=== PATIENT | male | born 1960 | race Caucasian/White ===

== ENCOUNTER → 2017-01-29 | Outpatient (CLI) | payer BC ==
--- NOTE | 2017-01-29 08:38 | CT ---
EXAM DESCRIPTION: Abdoment/Pelvis w/o Contrast CLINICAL HISTORY: 56 years, 56 years, Male, Male, ASYMPTOMATIC MICROSCOPIC HEMATURIA COMPARISON: None. TECHNIQUE: CT of the abdomen and pelvis is performed according to our non contrast protocol This exam was performed according to our departmental dose-optimization program, which includes automated exposure control, adjustment of the mA and/or kV according to patient size and/or use of iterative reconstruction technique. FINDINGS: A small calcified granuloma in the left lung base and tiny calcified granuloma in the right lung base is noted. The liver, biliary system, pancreas, and spleen are normal on noncontrast imaging. The right kidney is atrophic with cortical thinning without hydronephrosis. A tiny nonobstructing 1 mm calculus in the upper pole is suggested. On the left the kidney is normal in size and appearance without hydronephrosis with a bilobed approximate 0.5 x 1.5 cm stone in the lower pole calyceal system. No definite cystic or solid mass. Although there is no hydronephrosis present or hydroureter in the distal right ureter just proximal to the UVJ is an oval approximate seven or 8 mm calculus without significant proximal hydronephrosis or hydroureter. The adrenal glands and retroperitoneum are normal without mass or adenopathy. The IVC is normal and the aorta has a normal size and contour. The stomach, small and large bowel, peritoneal cavity, mesentery, and abdominal wall are normal. A fat-containing umbilical hernia is noted. The bladder has no focal mass or stone evident. The pelvis demonstrates no fluid collection or abnormal mass. Age appropriate degenerative changes in the spine and pelvis are noted. Marked posterior hypertrophic spurring at the L2-3 disc level significantly narrows the thecal sac anteriorly with significant stenosis suspected at this level. IMPRESSION: 1. Bilateral renal stone disease with moderately atrophic right kidney with tiny 1 mm nonobstructing upper pole calculus and moderately large seven or 8 mm distal right ureteral calculus but without significant proximal obstruction. A bilobed 0.5 x 1.5 cm calculus of the lower pole collecting system on the left without obstruction is noted 2. Marked posterior spurring at the L2-3 disc level with significant AP diameter canal stenosis. 3. Fat-containing umbilical hernia. Electronically signed by: Christiano Green MD 01/29/2017 8:38 AM CDT
== END ==
LOC: CT 07:47
PROVIDERS: ATTEND Family Medicine
DX: R31.21 Asymptomatic microscopic hematuria (principal); N20.0 Calculus of kidney; K42.9 Umbilical hernia without obstruction or gangrene

== ENCOUNTER 2017-03-15 15:59 | Emergency (ER) | payer BC ==
--- NOTE | 2017-03-15 16:27 | ED.PDOC ---
History of Present Illness - General Chief Complaint: General Stated Complaint: abnormal labs from clinic today Time Seen by Provider: 03/15/17 16:26 Source: patient Exam Limitations: no limitations - History of Present Illness Initial Comments: Perez Gardiner 56 y/o male stated that he had on and off dull to sharp abdominal pains for the last 2 weeks not getting relief.He decided to see his primary md today and had abnormal lab results advised to come to er.Labs that was done at the [facility] hospita lab as an outpatient K-6.6 [id number] Cr-4.35.He has DM2 and HTN. Timing/Duration: 1-3 hours Severity: moderate Improving Factors: nothing Worsening Factors: nothing Associated Symptoms: other - abdominal pains Allergies/Adverse Reactions: Allergies NO KNOWN ALLERGY Allergy (Verified 03/15/17 16:26) Home Medications: Ambulatory Orders Glipizide 10 mg PO BID 03/15/17 Metformin HCl 1,000 mg PO BID 03/15/17 Review of Systems - Review of Systems Constitutional: States: no symptoms reported EENTM: States: no symptoms reported Respiratory: States: no symptoms reported Cardiology: States: no symptoms reported Gastrointestinal/Abdominal: States: see HPI, abdominal pain Genitourinary: States: no symptoms reported Musculoskeletal: States: no symptoms reported Skin: States: no symptoms reported Neurological: States: no symptoms reported Endocrine: States: no symptoms reported Hematologic/Lymphatic: States: no symptoms reported Past Medical History (General) - Patient Medical History Hx Hypertension: Yes Hx Diabetes: Yes Surgical History: other - left knee - Vaccination History Hx Tetanus, Diphtheria Vaccination: No - Social History Hx Tobacco Use: No Hx Alcohol Use: No - Activities of Daily Living Patient Lives Alone: No - family Family Medical History - Family History Father Family History: Unknown - adopted Physical Exam - Physical Exam General Appearance: Alert, Comfortable, No apparent distress Eye Exam: bilateral normal Ears, Nose, Throat: hearing grossly normal, normal ENT inspection, normal pharynx Neck: non-tender, full range of motion, supple Respiratory: chest non-tender, lungs clear, normal breath sounds Cardiovascular/Chest: normal peripheral pulses, regular rate, rhythm, no edema, no murmur Peripheral Pulses: radial,right: 1+, radial,left: 1+ Gastrointestinal/Abdominal: normal bowel sounds, non tender, soft Back Exam: normal inspection, no CVA tenderness, no vertebral tenderness Extremity: normal range of motion, non-tender, normal inspection, no pedal edema , no calf tenderness Neurologic: alert, oriented x 3 Skin Exam: normal color, warm/dry Lymphatic: no adenopathy Progress - Progress Progress: 03/15/17 18:11 Vital Signs - 8 hr 03/15/17 03/15/17 03/15/17 16:27 17:24 17:52 Temperature 98 F Pulse Rate [ 80 60 72 Left Radial] Respiratory 20 22 16 Rate Blood Pressure 178/73 146/85 [Left Arm] O2 Sat by Pulse 98 99 95 Oximetry 03/15/17 18:07 Temperature Pulse Rate [ 58 L Left Radial] Respiratory 16 Rate Blood Pressure 137/84 [Left Arm] O2 Sat by Pulse 98 Oximetry 03/15/17 17:18 Sodium Bicarbonate Vial [Sodium Bicarbonate] 2 meq Sodium Chloride 0.45% 1000ML [1/2 Ns 1000ML] 1,000 ml IVS .QD 03/15/17 17:24 Abdoment/Pelvis w/o Contrast [CT] Stat 03/15/17 17:30 EKG STAT Laboratory Results - last 24 hr 03/15/17 03/15/17 03/15/17 16:25 16:25 16:27 WBC 8.4 RBC 3.44 L Hgb 10.9 L Hct 32.9 L MCV 95.7 H MCH 31.7 H MCHC 33.2 RDW 13.0 Plt Count 199 MPV 9.6 Absolute Neuts (auto) 6.00 Absolute Lymphs (auto) 1.30 Absolute Monos (auto) 0.90 H Absolute Eos (auto) 0.20 Absolute Basos (auto) 0.10 Neutrophils % 71.3 Lymphocytes % 15.0 L Monocytes % 11.0 H Eosinophils % 1.8 Basophils % 0.9 Sodium 142 Potassium 5.5 H Chloride 111 Carbon Dioxide 23 Anion Gap 13.5 BUN 66 H Creatinine 4.20 H BUN/Creatinine Ratio 15.7 Random Glucose 317 H D Serum Osmolality 314.3 H Calcium 8.3 L Total Bilirubin 0.4 AST 27 ALT 22 Alkaline Phosphatase 46 Serum Total Protein 6.6 Albumin 3.5 Globulin 3.1 Albumin/Globulin Ratio 1.1 Urine Color Yellow Urine Appearance Clear Urine pH 5.5 Ur Specific [place] 1.010 Urine Protein Negative Urine Glucose (UA) 250 H Urine Ketones Negative Urine Blood Small H Urine Nitrite Negative Urine Bilirubin Negative Urine Urobilinogen 0.2 Ur Leukocyte Esterase Negative Urine RBC 0-1 Urine WBC 1-3 Ur Epithelial Cells 0 Urine Bacteria 0 - EKG/XRAY/CT CT Ordered: Yes - abd/p outpatient-bilateral ureteral stone;obstructing left ureteral stone Departure - Departure Clinical Impression: Hyperkalemia, diminished renal excretion Acute renal failure (ARF) Qualifiers: Acute renal failure type: with other specified pathological lesion Qualified Code(s): N17.8 - Other acute kidney failure Diabetes Qualifiers: Diabetes mellitus type: type 2 Diabetes mellitus complication status: without complication Qualified Code(s): E11.9 - Type 2 diabetes mellitus without complications Time of Disposition: 18:21 - D/W Dr. Cotton -Urologist/Dr. Galan-Nephro Disposition: Transfer to Hospital Condition: Fair Departure Forms: Patient Portal Self Enrollment Referrals: Jarett Alvarez MD [Primary Care Provider] - 1-2 Weeks Home Medications: Ambulatory Orders Glipizide 10 mg PO BID 03/15/17 Metformin HCl 1,000 mg PO BID 03/15/17
[2017-03-15 16:31] VITALS: TEMP 98
[2017-03-15] MEDS ORDERED: CALCIUM GLUCONATE INJ 1 GM/10 ML VIAL IV ONE (17:18)
[2017-03-15] MEDS ORDERED: SODIUM CHLORIDE 0.45% IVS PRN (17:18)
[2017-03-15] MEDS ORDERED: SODIUM BICARBONATE IVS PRN (17:18)
[2017-03-15] MEDS ORDERED: SODIUM BICARBONATE SYRINGE 50 MEQ/50 ML SYG IV ONE ×2 (17:29→17:32)
[2017-03-15] MEDS ORDERED: SODIUM CHLORIDE 0.45% 1000ML 1,000 ML IVS ONE (17:30)
[2017-03-15] MEDS ORDERED: INSULIN, REG.(HUMAN) 100 U/ML VIAL SUBCU ONE (17:46)
[2017-03-15] MEDS ORDERED: INSULIN, REG.(HUMAN) 100 U/ML VIAL IV ONE (18:04)
[2017-03-15 18:08] VITALS: BP 137/84; O2SAT 98
== END 2017-03-15 18:59 | disposition short-term general hospital (02) ==
LOC: ER 15:59
DX: E87.5 Hyperkalemia (principal); N17.8 Other acute kidney failure; N20.1 Calculus of ureter; E11.9 Type 2 diabetes mellitus without complications; I10 Essential (primary) hypertension
CPT/HCPCS: 36415; 80053; 81001; 85025; 93005; J7799

== ENCOUNTER → 2017-03-15 | Outpatient (CLI) | payer SELFPAY ==
--- NOTE | 2017-03-15 17:23 | CT ---
EXAM DESCRIPTION: Abdoment/Pelvis w/o Contrast CLINICAL HISTORY: 56 years, 56 years, Male, Male, LLQ PAIN COMPARISON: January 29, 2017 TECHNIQUE: CT of the abdomen and pelvis is performed according to our non contrast protocol This exam was performed according to our departmental dose-optimization program, which includes automated exposure control, adjustment of the mA and/or kV according to patient size and/or use of iterative reconstruction technique. FINDINGS: The lung bases are clear without infiltrate or effusion or mass. The upper abdomen demonstrates a normal appearance of the spleen and liver as well as gallbladder and pancreas and adrenal glands. Both kidneys are abnormal in appearance with a moderately atrophic right kidney that in retrospect is very little changed from previous. Significant caliectasis is not apparent but there is now mild pelviectasis and mild dilation of the proximal right ureter to the level of a previously described 8 mm distal ureteral calculus. Mild proximal obstruction is suspected and more prominent than previously seen. On the left there is moderate hydronephrosis with either an elongated or more likely multiple stacked stones in the proximal ureter lying at and just below the level of the lower pole of the left kidney. At least one small nonobstructing intrarenal calculus is evident in a lower pole calyx as well as a tiny calculus in a midpole calyx of the left kidney. I suspect there are at least three stones in the proximal left ureter with the largest approximately 8 mm in diameter and two smaller three or 4 mm calculi more proximally. The retroperitoneum is unremarkable. Small and large bowel caliber is normal. Very little if any diverticulosis and no evidence of diverticulitis is noted. An acute inflammatory process in the left lower quadrant is not apparent. Fat-containing umbilical hernia is noted with the anterior abdominal wall otherwise unremarkable area of moderate focal degenerative changes with posterior spurring into the spinal canal with likely significant central stenosis at L2-3 is noted. IMPRESSION: 1. Abnormal kidneys bilaterally with persistent 8 mm distal right ureteral calculus with no minimal pelviectasis and ureterectasis without caliectasis involving the atrophic right kidney. 2. Hydronephrosis and obstructing calculi in the proximal left ureter with moderate proximal caliectasis with I suspect a series of three stones obstructing the proximal left ureter at and just below the level of the lower pole. 3. No evidence of acute diverticulitis is seen. 4. Marked hypertrophic spurring posteriorly at the L2-3 disc level with significant spinal canal stenosis. Electronically signed by: Christiano Green MD 03/15/2017 11:53 AM CDT
== END ==
LOC: CT 10:28
PROVIDERS: ATTEND Nurse Practitioner Family
DX: R10.32 Left lower quadrant pain (principal); N13.2 Hydronephrosis with renal and ureteral calculous obstruction

== ENCOUNTER → 2017-05-05 | Outpatient (CLI) | payer BC ==
--- NOTE | 2017-05-05 16:57 | RAD ---
EXAM DESCRIPTION: KUB CLINICAL HISTORY: 56 years, Male, CALCULUS OF KIDNEY COMPARISON: CT scan March 15. FINDINGS: Nonspecific bowel gas pattern. There are two nonobstructing lower pole left kidney stones measuring about 3 mm. Slightly larger stone present on the CT scan earlier not clearly seen. The stones in the proximal left ureter also not clearly seen. No obvious stone over course of either ureter in the abdomen. In the pelvis there are several rounded calcifications bilaterally which are probably phleboliths. A oval density about 2 cm overlying the left ilium was not seen on the February study and may be an external artifact. IMPRESSION: 1. Previously noted proximal left ureteral stones no longer seen and have presumably been passed 2. No obvious ureteral stone on either side 3. Nonobstructing lower pole left kidney stones Electronically signed by: Miguel A Weiss MD 05/05/2017 4:56 PM CDT
== END ==
LOC: RAD 13:25
PROVIDERS: ATTEND Urology
DX: N20.0 Calculus of kidney (principal)

== ENCOUNTER → 2017-05-26 | Outpatient (CLI) | payer BC ==
--- NOTE | 2017-05-27 10:52 | RAD ---
EXAM DESCRIPTION: XR ABDOMEN 1 VIEW (KUB) CLINICAL HISTORY: STONES COMPARISON: May 05, 2017 TECHNIQUE: KUB FINDINGS: There is an unremarkable bowel gas pattern. No obstruction or ileus is evident. Very subtle calcifications overlie the lower pole of the left kidney and are less distinctly seen but present in comparison to prior recent study. Bilateral pelvic phleboliths are noted. Age appropriate bony degenerative changes are present. IMPRESSION: Small probable nonobstructing intrarenal calculi lower pole of the left kidney. Electronically signed by: Christiano Green MD 05/27/2017 10:51 AM CDT
== END ==
LOC: RAD 14:09
PROVIDERS: ATTEND Urology
DX: N20.0 Calculus of kidney (principal)

== ENCOUNTER → 2017-07-07 | Outpatient (CLI) | payer BC ==
--- NOTE | 2017-07-09 01:19 | RAD ---
Procedure: XR ABDOMEN 1 VIEW (KUB) Exam Date: 07/07/2017 Ordering Provider: TAMARA TRAN Clinical Indication: CALCULUS OF KIDNEY Comparison: 05/26/2017 Findings: Punctate calcification projecting over the expected region of the left kidney. Pelvic phleboliths. There is no bowel distention. There is no pneumoperitoneum. There is no acute skeletal abnormality. Impression: 1. Left nephrolithiasis. Electronically signed by: Luis Alfredo Davis MD 07/09/2017 1:18 AM MANAGER CONTROL
== END | disposition home or self-care (01) ==
LOC: RAD 14:42
PROVIDERS: ATTEND Urology
DX: N20.0 Calculus of kidney (principal)

== ENCOUNTER 2017-10-22 18:15 | Emergency (ER) | payer BC ==
--- NOTE | 2017-10-22 19:07 | ED.PDOC ---
History of Present Illness - General Chief Complaint: Laceration Stated Complaint: laceration finger Time Seen by Provider: 10/22/17 19:06 - History of Present Illness Initial Comments: Perez Gardiner 57 y/o male stated that he was working on a forklift fan and right index finger got caught in the revolving fan sustained laceration on the right index finger. Occurred: just prior to arrival Pain - Upper Extremity: moderate: Hand, right Method of Injury: other - see hpi Improving Factors: nothing Worsening Factors: movement Allergies/Adverse Reactions: Allergies NO KNOWN ALLERGY Allergy (Verified 03/15/17 16:26) Home Medications: Ambulatory Orders Glipizide 10 mg PO BID 03/15/17 Metformin HCl 1,000 mg PO BID 03/15/17 Review of Systems - Review of Systems Constitutional: States: no symptoms reported EENTM: States: no symptoms reported Respiratory: States: no symptoms reported Cardiology: States: no symptoms reported Gastrointestinal/Abdominal: States: no symptoms reported Skin: States: see HPI Neurological: States: no symptoms reported All other Systems: Reviewed and Negative, No Change from Baseline Past Medical History (General) - Patient Medical History Hx Seizures: No Hx Stroke: No Hx Dementia: No Hx Asthma: No Hx of COPD: No Hx Cardiac Disorders: No Hx Congestive Heart Failure: No Hx Pacemaker: No Hx Hypertension: Yes Hx Thyroid Disease: No Hx Diabetes: Yes Hx Gastroesophageal Reflux: No Hx Renal Disease: No Hx Cancer: No Hx of HIV: No Hx Hepatitis C: No Hx MRSA: No Surgical History: other - renal procedure - Vaccination History Hx Tetanus, Diphtheria Vaccination: No Hx Influenza Vaccination: Yes Hx Pneumococcal Vaccination: Yes - Social History Hx Tobacco Use: No Hx Chewing Tobacco Use: No Hx Alcohol Use: No Hx Substance Use: No Hx Depression: No Hx Physical Abuse: No Hx Emotional Abuse: No Hx Suspected Abuse: No - Female History Patient : No Family Medical History - Family History Father Family History: Unknown - adopted Living Status: Unknown Hx Family;Other: Adopted Physical Exam - Physical Exam General Appearance: Alert, Comfortable, No apparent distress Eyes, Ears, Nose, Throat Exam: normal ENT inspection Neck: supple Cardiovascular/Respiratory: regular rate, rhythm, no M/R/G, normal breath sounds Abdominal Exam: non-tender, no organomegaly Back Exam: no CVA tenderness, no vertebral tenderness Shoulder Exam: normal inspection, non-tender, no evidence of injury Wrist Exam: no evidence of injury Hand Exam: laceration - web space 3cm right index finger Neuro/Tendon: normal sensation, normal motor functions, normal tendon functions , other - 2 point discrimination test normal Mental Status: alert, oriented x 3 Skin Exam: normal color, warm/dry Progress - Progress Progress: 10/22/17 20:24 Vital Signs 10/22/17 19:10 Temperature 98.7 F Pulse Rate [ 71 Left Brachial] Respiratory 16 Rate Blood Pressure 142/92 [Left Arm] O2 Sat by Pulse 95 Oximetry Procedures - Laceration/Wound Repair Right Finger Wound Length (cm): 3 - index finger right Wound's Depth, Shape: irregular, stellate Wound Explored: clean Irrigated w/ Saline (cc's): 3 Betadine Prep?: Yes Anesthesia: 1% Lidocaine Volume Anesthetic (cc's): 8 - metacarpal block done Wound Repaired With: sutures Suture Size/Type: 4:0, nylon Number of Sutures: 7 Layer Closure?: No Sterile Dressing Applied?: Yes Departure - Departure Clinical Impression: Laceration of index finger of right hand without complication Time of Disposition: 20:26 Disposition: Discharge to Home or Self Care Condition: Good Departure Forms: ED Discharge - Pt. Copy, Patient Portal Self Enrollment Instructions: DI for Laceration Repair, DI for Laceration Repair -- Finger Referrals: Jarett Alvarez MD [Primary Care Provider] - 1-2 Weeks Home Medications: Ambulatory Orders Glipizide 10 mg PO BID 03/15/17 Metformin HCl 1,000 mg PO BID 03/15/17 Additional Instructions: REMOVAL OF SUTURES 11/04/2017 [facility]
[2017-10-22] MEDS ORDERED: POVIDONE IODINE 10 % 15 ML UD TOP ONE ×2 (19:27→20:19)
[2017-10-22] MEDS ORDERED: LIDOCAINE 1% 10 ML VIAL INJ ONE (19:36)
[2017-10-22 19:44] VITALS: O2SAT 95
[2017-10-22] MEDS ORDERED: NEOMYCIN-BACITRACIN-POLYMYXIN 0.9 GM UD TOP ONE ×2 (20:05→20:20)
[2017-10-22] MEDS ORDERED: TETANUS,DIPHTHERIA,PERTUSSIS 1 EA SYG IM ONE (20:18)
[2017-10-22] MEDS ORDERED: HYDROCOD/APAP 7.5/325 (ER DISP) #3 TAB PO ONE (20:27)
[2017-10-22] MEDS ORDERED: CEPHALEXIN MONOHYDRATE 500 MG CAP PO ONE (20:27)
[2017-10-22 20:56] VITALS: BP 138/88; TEMP 98.4
== END 2017-10-22 20:50 | disposition home or self-care (01) ==
LOC: ER 18:15
DX: S61.210A Laceration without foreign body of right index finger without damage to nail, initial encounter (principal); I10 Essential (primary) hypertension; E11.9 Type 2 diabetes mellitus without complications; Z23 Encounter for immunization; W24.0XXA Contact with lifting devices, not elsewhere classified, initial encounter

== ENCOUNTER → 2018-01-17 | Outpatient (CLI) | payer BC | LOC: GMAB 14:34 | PROVIDERS: ATTEND Family Medicine | DX: E53.8 Deficiency of other specified B group vitamins (principal); D50.9 Iron deficiency anemia, unspecified ==

== ENCOUNTER → 2018-12-27 | Outpatient (CLI) | payer BC | LOC: GMAE 10:50 | PROVIDERS: ATTEND Family Medicine | DX: G25.81 Restless legs syndrome (principal) ==

== ENCOUNTER → 2019-08-04 | Outpatient (CLI) | payer BC | LOC: GMALS 10:29 | PROVIDERS: ATTEND Nurse Practitioner Acute Care | DX: M10.9 Gout, unspecified (principal); E78.2 Mixed hyperlipidemia; I10 Essential (primary) hypertension ==

== ENCOUNTER 2020-06-25 01:35 | Inpatient (IN) | payer BC ==
--- NOTE | 2020-06-25 02:07 | ED.PDOC ---
History of Present Illness - General Chief Complaint: Respiratory Problem Stated Complaint: COVID +, bilat pneumonia Time Seen by Provider: 06/25/20 01:46 Source: patient, RN notes reviewed, Vital Signs reviewed, RN/MD - Dr. Dailey and ED physician in [place] Exam Limitations: no limitations - History of Present Illness Initial Comments: Patient is a 59-year-old white male who presents with complaints of cough, nonproductive and dyspnea for the last 2 weeks, worsening in the last couple of days. Patient was seen [address] Dailey's clinic here in [facility], checks x-ray diagnosed with pneumonia, Covid negative on the rapid test. Patient was told to go to only for admission peer on arrival and only patient was noted to have a positive bile fire Covid study and was transferred here for admission. Patient denies any fevers. Patient states that he is just been sick for a couple of weeks and was upset it was not getting better and that is why he went to the doctor. Timing/Duration: getting worse, other - 2 weeks Severity: moderate Improving Factors: nothing Worsening Factors: movement Associated Symptoms: cough, shortness of breath, weakness Allergies/Adverse Reactions: Allergies NO KNOWN ALLERGY Allergy (Verified 06/25/20 02:15) Home Medications: Ambulatory Orders Glipizide 10 mg PO BID 03/15/17 Metformin HCl [Metformin Hydrochloride] 1,000 mg PO BID 03/15/17 Review of Systems - Review of Systems Constitutional: States: no symptoms reported, see HPI, weakness. Denies: chills, fever, malaise EENTM: States: no symptoms reported. Denies: eye pain, blurred vision, double vision Respiratory: States: see HPI, cough, short of breath. Denies: stridor, wheezing Cardiology: States: no symptoms reported. Denies: chest pain, palpitations, syncope Gastrointestinal/Abdominal: States: no symptoms reported. Denies: abdominal pain, nausea, vomiting Genitourinary: States: no symptoms reported. Denies: dysuria, frequency Musculoskeletal: States: no symptoms reported. Denies: back pain, joint pain, neck pain Skin: States: no symptoms reported. Denies: change in color, rash Neurological: States: see HPI, weakness. Denies: headache, tingling, tremors Endocrine: States: no symptoms reported. Denies: increased hunger, increased thirst, increased urine Hematologic/Lymphatic: States: no symptoms reported. Denies: blood clots, easy bleeding All other Systems: No Change from Baseline Past Medical History (General) - Patient Medical History Hx Seizures: No Hx Stroke: No Hx Dementia: No Hx Asthma: No Hx of COPD: No Hx Cardiac Disorders: No Hx Congestive Heart Failure: No Hx Pacemaker: No Hx Hypertension: Yes Hx Thyroid Disease: No Hx Diabetes: Yes Hx Gastroesophageal Reflux: No Hx Renal Disease: No Hx Cancer: No Hx of HIV: No Hx Hepatitis C: No Hx MRSA: No - Vaccination History Hx Tetanus, Diphtheria Vaccination: No Hx Influenza Vaccination: Yes Hx Pneumococcal Vaccination: Yes - Social History Hx Tobacco Use: No Hx Chewing Tobacco Use: No Hx Alcohol Use: No Hx Substance Use: No Hx Depression: No Hx Physical Abuse: No Hx Emotional Abuse: No Hx Suspected Abuse: No - Female History Patient : No Family Medical History - Family History Father Family History: Unknown - adopted Living Status: Unknown Hx Family;Other: Adopted Physical Exam - Physical Exam General Appearance: Alert, Well Developed, Well Groomed, Well Hydrated, Well Nourished, Other - mild distress Eye Exam: bilateral normal Ears, Nose, Throat: hearing grossly normal, normal pharynx Neck: non-tender, full range of motion, supple Respiratory: chest non-tender, respiratory distress - mild, rhonchi - diffusely throughout, other - hypoxia at 88% on RA Cardiovascular/Chest: normal peripheral pulses, regular rate, rhythm, no edema, no gallop, no JVD, no murmur Peripheral Pulses: radial,right: 2+, radial,left: 2+ Gastrointestinal/Abdominal: normal bowel sounds, non tender, soft, no organomegaly Back Exam: normal inspection, no CVA tenderness, no vertebral tenderness Extremity: normal range of motion, non-tender Neurologic: dry can tender II-XII nml as tested, no motor/sensory deficits, alert, normal mood/affect, oriented x 3 Skin Exam: normal color, warm/dry Lymphatic: no adenopathy Progress - Progress Progress: Differential diagnosis: COVID-19, pneumonia, influenza, COPD exacerbation among others. 06/25/20 02:48 Patient with COVID-19 and hypoxia. Chest x-ray is patient with mild hypoxia here in the ED. Outside facility chest x-ray shows bilateral opacities consistent with pneumonia. Patient started on Decadron, Rocephin, IV Zithromax as well as remdesivir and Lovenox. Patient admitted to the hospital for further treatment. I discussed this plan of care with the patient and he voices understanding and agreement. I discussed this patient with Jolene Garcia NP, who accepts the patient for admission. Nhan Delgado M.D. #[id number] - Results/Orders Results/Orders: 06/25/20 01:47 Isolation:Airborne ONCE 06/25/20 02:00 Pulse Ox, Continuous Monitoring STAT 06/25/20 02:13 BLOOD CULTURE Stat 06/25/20 02:31 Azithromycin IV [Zithromax IV] 500 mg Sodium Chloride 0.9% 250Ml [NS 250ml] 250 ml IVPB ONCE cefTRIAXone SODIUM [Rocephin] 1 gm Sodium Chl 0.9% 50Ml Min-Bag+ [NS 50ml MINI-BAG+] 50 ml IVPB ONCE 06/25/20 09:00 Remdesivir 200 mg Sodium Chloride 0.9% 250Ml [NS 250ml] 250 ml IVPB DAILY 06/26/20 02:00 Pulse Ox, Continuous Monitoring STAT 06/27/20 02:00 Pulse Ox, Continuous Monitoring STAT Laboratory Results - last 24 hr 06/25/20 06/25/20 06/25/20 01:58 01:58 01:58 WBC 6.7 RBC 4.72 Hgb 15.4 Hct 44.7 MCV 94.7 H MCH 32.6 H MCHC 34.4 RDW 12.8 Plt Count 169 MPV 9.4 Absolute Neuts (auto) 4.20 Absolute Lymphs (auto) 1.50 Absolute Monos (auto) 1.00 H Absolute Eos (auto) 0.00 Absolute Basos (auto) 0.00 Neutrophils % 62.6 Lymphocytes % 21.6 Monocytes % 15.3 H Eosinophils % 0.1 L Basophils % 0.4 PTT (SP) 28.1 D-Dimer, Quantitative 1310.0 H* Sodium Potassium Chloride Carbon Dioxide Anion Gap BUN Creatinine BUN/Creatinine Ratio Random Glucose Serum Osmolality Calcium Magnesium Total Bilirubin AST ALT Alkaline Phosphatase LD Total Creatine Kinase Troponin I C-Reactive Protein B-Natriuretic Peptide 28.7 Serum Total Protein Albumin Globulin Albumin/Globulin Ratio 06/25/20 06/25/20 01:58 01:58 WBC RBC Hgb Hct MCV MCH MCHC RDW Plt Count MPV Absolute Neuts (auto) Absolute Lymphs (auto) Absolute Monos (auto) Absolute Eos (auto) Absolute Basos (auto) Neutrophils % Lymphocytes % Monocytes % Eosinophils % Basophils % PTT (SP) D-Dimer, Quantitative Sodium 136 Potassium 4.9 Chloride 98 L Carbon Dioxide 25 Anion Gap 17.9 BUN 17 Creatinine 1.24 BUN/Creatinine Ratio 13.7 Random Glucose 244 H Serum Osmolality 281.6 Calcium 8.4 Magnesium 1.7 L Total Bilirubin 1.0 AST 52 H ALT 43 Alkaline Phosphatase 62 LD Total 267 H Creatine Kinase 56 Troponin I < 0.02 C-Reactive Protein 10.2 H* B-Natriuretic Peptide Serum Total Protein 7.4 Albumin 3.2 Globulin 4.2 H Albumin/Globulin Ratio 0.8 L See scanned outside records for positive Covid test and chest x-ray showing bilateral opacities. Vital Signs 06/25/20 06/25/20 06/25/20 01:43 02:08 02:18 Temperature 97.7 F Pulse Rate [ 88 83 monitor] Respiratory 24 24 Rate Blood Pressure 150/100 140/84 [Left Arm] O2 Sat by Pulse 88 L 95 Oximetry Departure - Departure Clinical Impression: COVID-19 virus detected, Hypoxia Pneumonia Qualifiers: Pneumonia type: due to unspecified organism Laterality: bilateral Lung loca tion: unspecified part of lung Qualified Code(s): J18.9 - Pneumonia, unspecified organism Time of Disposition: 02:52 Disposition: Admit Patient Condition: Fair Departure Forms: ED Discharge - Pt. Copy, Patient Portal Self Enrollment Diet: resume usual diet Activity: increase activity as tolerated Referrals: LILIAN JAUREGUI MD [Primary Care Provider] - 1-2 Weeks Home Medications: Ambulatory Orders Glipizide 10 mg PO BID 03/15/17 Metformin HCl [Metformin Hydrochloride] 1,000 mg PO BID 03/15/17 Decision To Admit - Decistion To Admit Decision to Admit Date: 06/25/20 Decision to Admit Time: 01:50
[2020-06-25] MEDS ORDERED: cefTRIAXone SODIUM 1 GM in SODIUM CHL 0.9% 50ML MIN-BAG+ 50 ML IVPB ONE (02:31)
[2020-06-25] MEDS ORDERED: AZITHROMYCIN IV 500 MG in SODIUM CHLORIDE 0.9% 250ML 250 ML IVPB ONE (02:31)
[2020-06-25] MEDS ORDERED: DEXAMETHASONE INJ 10 MG/ML VIAL IV ONE (02:31)
[2020-06-25] MEDS ORDERED: ENOXAPARIN SODIUM 40 MG/0.4 ML SYG SUBCU ONE (02:35)
[2020-06-25] MEDS ORDERED: INSULIN LISPRO 100 UNITS/ML PEN SUBCU ONE (07:28)
[2020-06-25] MEDS ORDERED: GLUCAGON INJ 1 MG VIAL SUBCU PRN (08:38)
[2020-06-25] MEDS ORDERED: DEXTROSE 50% 25 GM/50 ML SYG IV PRN (08:38)
[2020-06-25] MEDS ORDERED: SODIUM CHLORIDE 0.9% (FLUSH) 10 ML SYG IV PRN (08:42)
[2020-06-25] MEDS ORDERED: ACETAMINOPHEN 325 MG TAB PO PRN (08:42)
[2020-06-25] MEDS ORDERED: ALBUTEROL INHALER 64 PUFF/8GM INH PRN (08:45)
[2020-06-25] MEDS ORDERED: REMDESIVIR 200 MG in SODIUM CHLORIDE 0.9% 250ML 250 ML IVPB SCH (09:00)
[2020-06-25] MEDS ORDERED: IV SET AND CAP CHANGE INJ INJ SCH (09:00)
[2020-06-25] MEDS ORDERED: guaiFENesin ER TAB 600 MG TAB ONE (09:08)
[2020-06-25] MEDS ORDERED: AZITHROMYCIN IV 500 MG VIAL IVPB ONE (09:08)
[2020-06-25] MEDS ORDERED: cefTRIAXone SODIUM 1 GM VIAL ONE (09:08)
[2020-06-25] MEDS ORDERED: SODIUM CHLORIDE 0.9% (FLUSH) 10 ML SYG ONE (09:09)
[2020-06-25] MEDS ORDERED: SODIUM CHLORIDE 0.9% 250ML 250 ML ONE (09:09)
[2020-06-25] MEDS ORDERED: SODIUM CHL 0.9% 50ML MIN-BAG+ 50 ML IVPB ONE (09:10)
--- NOTE | 2020-06-25 09:59 | CT ---
EXAM DESCRIPTION: Chest w/o Contrast CLINICAL HISTORY: 59 years Male, covid COMPARISON: Chest radiograph November 2009 TECHNIQUE: CT images through the chest without IV contrast. Multiplanar reformations provided. This exam was performed according to our departmental dose-optimization program, which includes automated exposure control, adjustment of the mA and/or kV according to patient size and/or use of iterative reconstruction technique. CT CHEST FINDINGS: Heart and mediastinum: Normal heart size. No pericardial effusion. Unremarkable soft tissues. Mild atherosclerosis. Scattered mediastinal lymph nodes measuring up to 10 mm subcarinal are likely reactive. Evaluation for hilar lymphadenopathy limited without intravenous contrast. Thyroid Gland: Normal. Lungs: Peripheral groundglass opacities throughout both lungs, greatest in the right lower lobe and left upper lobe/lingula. No suspicious nodule or mass. Airways: Normal. Pleura: Normal. Musculoskeletal and Soft Tissues: No acute fracture or aggressive appearing osseous lesion. Soft tissues unremarkable. Subphrenic Structures: Normal. IMPRESSION: 1. Peripheral groundglass opacities throughout the lungs compatible with viral pneumonia, especially given the patient's history. 2. Reactive mediastinal adenopathy. Electronically signed by: Joce Hess MD 06/25/2020 9:58 AM CDT
[2020-06-25] MEDS: DEXAMETHASONE INJ 10 MG/ML VIAL IV SCH (10:00)
[2020-06-25] MEDS: BIFIDOBACTERIUM INFANTIS 4 MG CAP PO SCH (10:00)
[2020-06-25] MEDS: guaiFENesin ER TAB 600 MG TAB PO SCH ×2 (10:00→21:02)
[2020-06-25] MEDS: SODIUM CHLORIDE 0.9% (FLUSH) 10 ML SYG IV SCH ×2 (10:01→21:02)
[2020-06-25] MEDS: cefTRIAXone SODIUM 1 GM in SODIUM CHL 0.9% 50ML MIN-BAG+ 50 ML IVPB SCH (10:01)
--- NOTE | 2020-06-25 10:01 | RAD ---
EXAM DESCRIPTION: Chest,1 View CLINICAL HISTORY: 59 years Male, covid COMPARISON: None. TECHNIQUE: Single view radiograph of the chest. IMPRESSION: Normal size cardiac silhouette. Partially calcified aorta. Peripherally based airspace opacities, greatest in the lateral right lower lung and left midlung probably representing pneumonia as better demonstrated on concurrent CT chest. No pleural effusion or pneumothorax. Included osseous structures intact. Electronically signed by: Joce Hess MD 06/25/2020 10:00 AM CDT
[2020-06-25] MEDS: AZITHROMYCIN IV 500 MG in SODIUM CHLORIDE 0.9% 250ML 250 ML IVPB SCH (10:02)
[2020-06-25] MEDS: INSULIN LISPRO 100 UNITS/ML PEN SUBCU SCH ×3 (12:02→21:25)
[2020-06-25] MEDS: ALBUTEROL INHALER 64 PUFF/8GM INH SCH ×3 (12:50→21:20)
--- NOTE | 2020-06-25 13:34 | HP ---
SUPERVISING PHYSICIAN: Justyn Sloan MD CHIEF COMPLAINT: Progressive weakness over the past several weeks. HISTORY OF PRESENT ILLNESS: This is a 59-year-old male patient who came to the Emergency Room with complaints of nonproductive cough and worsening weakness over the last week or so. He had been feeling poorly for almost 4 weeks, but on Wednesday, he was so weak to the point that he decided to go see his primary care physician. He went to [facility] and saw Dr. Dailey. Initial lab was done as well as COVID-19 test, which came back negative, but his chest x-ray showed bilateral pneumonia. Dr. Dailey did another swab and dropped it off in [place] and it was positive for COVID-19 pneumonia and the patient was told to go to the [place] ER. The ER physician in [facility] called me and reviewed lab and x-rays of the patient and the patient was sent to the Emergency Room in [place]. Upon arrival at the [place] ER, his temperature was 97.7, heart rate 88, blood pressure 150/100, respiratory rate 24, O2 saturation 88%. His lab was done and WBCs 6.7, hemoglobin 15.4, hematocrit 44.7, D-dimer 1,310. Electrolytes were basically within normal limits with the exception of magnesium was slightly low at 1.7. C-reactive protein was 10.2, AST 52, ferritin 1,241. Blood cultures were drawn. The patient was started on antibiotics in the ER and was admitted to the hospital in stable condition. PAST MEDICAL HISTORY: 1. Gout. 2. Hypertension. 3. Diabetes mellitus, type 2. PAST SURGICAL HISTORY: None. OUTPATIENT MEDICATIONS: 1. Amlodipine. 2. Glimepiride. 3. Metformin. 4. Potassium phosphate with sodium. 5. Crestor. ALLERGIES: NO KNOWN DRUG ALLERGIES. REVIEW OF SYSTEMS: GENERAL: Positive for fatigue. Negative for fever, chills or weight changes. HEENT: Negative for sinus symptoms, ear pain, vision changes or sore throat. RESPIRATORY: Positive for cough and mild shortness of breath. Negative for wheezing. CARDIAC: Negative for chest pain, palpitations or tachycardia. GASTROINTESTINAL: Negative for nausea, vomiting, diarrhea, constipation. GENITOURINARY: Negative for hematuria, dysuria or polyuria. MUSCULOSKELETAL: Negative for arthralgias, myalgias. SKIN: Negative for lesions or rashes. NEUROLOGIC: Positive for extreme weakness. Negative for headache or seizures. PHYSICAL EXAMINATION: VITAL SIGNS: Temperature 98.1, heart rate 86, blood pressure 129/83, respiratory rate 19, O2 saturation 95%. GENERAL: This is a 59-year-old male patient who is sitting up in his hospital bed. He looks to be moderately ill. HEENT: Normocephalic, atraumatic. Pupils are equal and reactive. Oropharynx is clear. NECK: Supple without mass. RESPIRATORY: Diminished breath sounds throughout. At times, he gets mildly tachypneic with speaking. CHEST: There is equal rise and fall of the chest with inspiration and expiration. CARDIOVASCULAR: Regular rate and rhythm. GASTROINTESTINAL: Abdomen is soft, nondistended, nontender. Bowel sounds are positive. EXTREMITIES: No cyanosis, clubbing or edema. NEUROLOGIC: Awake, alert and oriented times three. Cranial nerves II-XII are grossly intact as tested. LABORATORY: Followup lab shows WBCs 4.8, hemoglobin 15.6, hematocrit 45.8. He has a left shift on his differential. Fibrinogen 811, D-dimer 1,060. Sodium 137, potassium 5.4, chloride 99, carbon dioxide 25, BUN 19, creatinine 1.24, AST 44, LD 191, creatinine kinase 37, troponin less than 0.02, C-reactive protein 9.5. RADIOLOGY: CT of the chest shows 1) Peripheral ground glass opacities throughout the lungs, compatible with viral pneumonia, especially given the patient's history. 2) Reactive mediastinal adenopathy. Chest x-ray shows normal size cardiac silhouette, partially calcified aorta, peripheral airspace opacity, greatest in the lateral right lower lobe and left midlung, probably representing pneumonia as better demonstrated on concurrent CT of the chest. No pleural effusion or pneumothorax. Included osseous structures intact. All other labs and films have been reviewed via the EMR. IMPRESSION: 1. COVID-19 pneumonitis. 2. Bilateral pneumonia with an admitting respiratory rate of 24 and admitting heart rate of 88. 3. Diabetes mellitus, type 2. 4. Hypertension. 5. History of gout. PLAN: The patient has been admitted to the hospital. The pneumonia guidelines have been initiated as well as the COVID-19 guidelines. He will have aggressive pulmonary hygiene with albuterol p.r.n. and scheduled. He will also have azithromycin and Rocephin plus Remdesivir, Decadron and Lovenox. Home medications will be restarted as soon as they are verified. We will recheck his routine COVID labs tomorrow. I have also put him on sliding scale insulin per protocol and proton pump inhibitor for ulcer prophylaxis. We will continue to monitor the patient closely and follow as needed. [facility][id number] [facility]
[2020-06-25] MEDS: ENOXAPARIN SODIUM 40 MG/0.4 ML SYG SUBCU SCH (21:02)
[2020-06-26] MEDS ORDERED: PANTOPRAZOLE SODIUM TAB 40 MG PO ONE (03:27)
[2020-06-26] MEDS: PANTOPRAZOLE SODIUM TAB 40 MG PO SCH (05:52)
[2020-06-26] MEDS ORDERED: GLIMEPIRIDE 2 MG TAB ONE (07:11)
[2020-06-26] MEDS ORDERED: metFORMIN HCL 500 MG TAB ONE (07:11)
[2020-06-26] MEDS: ALBUTEROL INHALER 64 PUFF/8GM INH SCH ×4 (07:30→21:36)
[2020-06-26] MEDS: INSULIN LISPRO 100 UNITS/ML PEN SUBCU SCH ×5 (07:44→21:13)
[2020-06-26] MEDS: cefTRIAXone SODIUM 1 GM in SODIUM CHL 0.9% 50ML MIN-BAG+ 50 ML IVPB SCH (08:20)
[2020-06-26] MEDS: amLODIPine BESYLATE 5 MG TAB PO SCH ×2 (08:20→21:12)
[2020-06-26] MEDS: GLIMEPIRIDE 2 MG TAB PO SCH (08:20)
[2020-06-26] MEDS: guaiFENesin ER TAB 600 MG TAB PO SCH ×2 (08:20→21:12)
[2020-06-26] MEDS: metFORMIN HCL 500 MG TAB PO SCH ×2 (08:21→21:12)
[2020-06-26] MEDS: DEXAMETHASONE INJ 10 MG/ML VIAL IV SCH (08:21)
[2020-06-26] MEDS: SODIUM CHLORIDE 0.9% (FLUSH) 10 ML SYG IV SCH ×2 (08:21→21:12)
[2020-06-26] MEDS: BIFIDOBACTERIUM INFANTIS 4 MG CAP PO SCH (08:21)
[2020-06-26] MEDS ORDERED: NON-FORMULARY MEDICATION 1 EA MIS (Glimepiride [Glimepiride] 4 MG) PO SCH (09:00)
[2020-06-26] MEDS ORDERED: ROSUVASTATIN CALCIUM 10 MG PO SCH (09:00)
[2020-06-26] MEDS ORDERED: NON-FORMULARY MEDICATION 1 EA MIS (Metformin Hcl [Metformin Hydrochloride] 1,000 MG) PO SCH (09:00)
[2020-06-26] MEDS: AZITHROMYCIN IV 500 MG in SODIUM CHLORIDE 0.9% 250ML 250 ML IVPB SCH (10:15)
[2020-06-26] MEDS: REMDESIVIR 100 MG in SODIUM CHLORIDE 0.9% 250ML 250 ML IVPB SCH (12:15)
--- NOTE | 2020-06-26 19:47 | PN ---
SUPERVISING PHYSICIAN: Sarbjit Sloan MD DATE: 06/26/20 SUBJECTIVE: The patient says his breathing has improved since he has been in the hospital. He has no complaints of shortness of breath significantly other than just some mild short of breath associated with ambulation. No chest pain, no nausea or vomiting. OBJECTIVE: VITAL SIGNS: Temperature 98.4, pulse 81, blood pressure 136/75, respirations 18, oxygen saturation 94% on 2 liter nasal cannula at rest. GENERAL: The patient looks to be resting comfortably, in no acute distress. CHEST: Lung sounds fairly clear, just diminished towards the bases bilaterally. I do not hear any rhonchi, rales, or wheezes. HEART: Regular rate and rhythm without murmurs, rubs, or gallops. ABDOMEN: Soft, non-tender, positive bowel sounds. EXTREMITIES: Without edema. NEUROLOGICAL: He is alert and oriented x3 with no obvious deficits. SKIN: Warm, pink and dry. LABORATORY: White count 7,700,hemoglobin 15.4, hematocrit 12.2, platelet count 194,000. Differential shows a light left shift. Coagulation studies show D- dimer is now down to 470, fibrinogen stable at 811, PTT 27.2. Chemistries - C- reactive protein 5.6, liver functions all within normal limits. Ferritin was elevated 1318, blood sugar still running high between 280 and 358. Creatinine 1.08. MICROBIOLOGY: Blood cultures remain negative at 24 hours. RADIOLOGY: No additional studies today. IMPRESSION: 1. COVID-19 pneumonitis. 2. Bilateral pneumonia with an admitting respiratory rate of 24 and admitting heart rate of 88. 3. Diabetes mellitus, type 2. 4. Hypertension. 5. History of gout. PLAN: We will continue with current plan of care with Covid treatment. He does remain on azithromycin,Rocephin, Decadron, Remdesivir and breathing treatments. He is taking adequate oral intake, therefore, will keep him saline-locked. His medications have been updated and reviewed and restarted. I did increase his sliding scale with additional ac coverage of 8 units as well as started him on Levemir to see if we can get control of his blood sugars. Hopefully he can be discharged within the next 24-48 hours. Until the, we will continue to monitor and treat as needed. #[id number] [facility]
[2020-06-26] MEDS ORDERED: SIMVASTATIN 20 MG TAB PO SCH (21:00)
[2020-06-26] MEDS: ENOXAPARIN SODIUM 40 MG/0.4 ML SYG SUBCU SCH (21:12)
[2020-06-26] MEDS: INSULIN DETEMIR 100 UNITS/ML PEN SUBCU SCH (21:13)
[2020-06-27] MEDS: PANTOPRAZOLE SODIUM TAB 40 MG PO SCH (05:48)
--- NOTE | 2020-06-27 07:26 | RAD ---
EXAM: XR Chest, 1 View CLINICAL HISTORY: COVID PNA TECHNIQUE: Frontal view of the chest. COMPARISON: 06/25/2020 FINDINGS: Lungs: Minimal residual groundglass infiltrate in both lower lung zones. Pleural space: No pneumothorax or pleural effusion. Heart: Stable prominent cardiac shadow. Mediastinum: No abnormality noted. Bones/joints: No osseous destruction or sclerosis noted. IMPRESSION: Improved basilar groundglass lung disease compatible with covid pneumonia. Electronically signed by: Linsey Canseco MD 06/27/2020 7:24 AM CDT
[2020-06-27] MEDS: GLIMEPIRIDE 2 MG TAB PO SCH (08:07)
[2020-06-27] MEDS: BIFIDOBACTERIUM INFANTIS 4 MG CAP PO SCH (08:08)
[2020-06-27] MEDS: DEXAMETHASONE INJ 10 MG/ML VIAL IV SCH (08:08)
[2020-06-27] MEDS: guaiFENesin ER TAB 600 MG TAB PO SCH (08:08)
[2020-06-27] MEDS: metFORMIN HCL 500 MG TAB PO SCH (08:08)
[2020-06-27] MEDS: amLODIPine BESYLATE 5 MG TAB PO SCH (08:08)
[2020-06-27] MEDS: cefTRIAXone SODIUM 1 GM in SODIUM CHL 0.9% 50ML MIN-BAG+ 50 ML IVPB SCH (08:21)
[2020-06-27] MEDS: INSULIN LISPRO 100 UNITS/ML PEN SUBCU SCH ×6 (08:21→17:23)
[2020-06-27] MEDS: INSULIN DETEMIR 100 UNITS/ML PEN SUBCU SCH (08:21)
[2020-06-27] MEDS: SODIUM CHLORIDE 0.9% (FLUSH) 10 ML SYG IV SCH (08:22)
[2020-06-27] MEDS: ALBUTEROL INHALER 64 PUFF/8GM INH SCH ×3 (08:25→17:18)
[2020-06-27] MEDS: AZITHROMYCIN IV 500 MG in SODIUM CHLORIDE 0.9% 250ML 250 ML IVPB SCH (09:30)
[2020-06-27] MEDS: REMDESIVIR 100 MG in SODIUM CHLORIDE 0.9% 250ML 250 ML IVPB SCH (11:43)
[2020-06-27 17:21] VITALS: BP 130/76; TEMP 97.8; O2SAT 95
--- NOTE | 2020-07-03 10:03 | DS ---
SUPERVISING PHYSICIAN: Justyn Sloan MD ADMISSION DIAGNOSIS: 1. COVID-19 pneumonitis. 2. Bilateral pneumonia with an admitting respiratory rate of 24 and admitting heart rate of 88. 3. Diabetes mellitus, type 2. 4. Hypertension. 5. History of gout. DISCHARGE DIAGNOSIS: 1. COVID pneumonitis. 2. Bilateral pneumonia secondary to #1. 3. Diabetes mellitus, type 2. 4. Hypertension. 5. History of gout. REASON FOR HOSPITALIZATION: This is a 59-year-old male patient who came to the Emergency Room with complaints of nonproductive cough and worsening weakness over the last week or so. He had been feeling poorly for almost 4 weeks, but on Wednesday, he was so weak to the point that he decided to go see his primary care physician. He went to [facility] and saw Dr. Dailey. Initial lab was done as well as COVID-19 test, which came back negative, but his chest x-ray showed bilateral pneumonia. Dr. Dailey did another swab and dropped it off in [place] and it was positive for COVID-19 pneumonia and the patient was told to go to the [place] ER. The ER physician in [facility] called me and reviewed lab and x-rays of the patient and the patient was sent to the Emergency Room in [place]. Upon arrival at the [place] ER, his temperature was 97.7, heart rate 88, blood pressure 150/100, respiratory rate 24, O2 saturation 88%. His lab was done and WBCs 6.7, hemoglobin 15.4, hematocrit 44.7, D-dimer 1,310. Electrolytes were basically within normal limits with the exception of magnesium was slightly low at 1.7. C-reactive protein was 10.2, AST 52, ferritin 1,241. Blood cultures were drawn. The patient was started on antibiotics in the ER and was admitted to the hospital in stable condition. LABORATORY: White count on discharge was 7,700, hemoglobin 15.1, hematocrit 44.2, platelet count 194,000. Differential was without a left shift. Coagulation studies showed normal D-dimer at 188 compared to admission of 1310. Fibrinogen was 811 and stable. PTT 27.2. Chemistries on discharge showed normal electrolytes with creatinine 1.06. Blood sugars ranged between 140 and 326. C-reactive protein was 2.1 compared to 10.2 on admission. MICROBIOLOGY: Blood cultures negative after 5 days. RADIOLOGY: CT of the chest per radiologic interpretation peripheral ground glass opacities throughout the lungs compatible with viral pneumonia. Please see that report for details. Final chest x-ray on discharge showed improved bibasilar ground glass opacities, lungs compatible with COVID pneumonia. HOSPITAL COURSE: Mr. Gardiner was admitted for COVID pneumonia. He was treated with azithromycin, Rocephin, Decadron, Remdesivir, albuterol and Lovenox. He progressed well clinically. On date of discharge, vital signs showed 95% saturation on room air, blood pressure 130/76, heart rate 84, temperature 97.8. PLAN: Mr. Gardiner was discharged on 06/27/20 with instructions to followup with his primary care provider, Dr. Sloan, on 07/09/20 at 9:15 AM. He was continue a diabetic diet and increase his activity as tolerated. He was to take medications as prescribed at discharge includin. Align 4 mg daily, #30, no refills. 2. Decadron 6 mg daily, #7, no refills. 3. Eliquis 5 mg daily, #46, no refills. 4. Cefdinir 300 mg twice daily, #14. 5. Albuterol inhaler q.4h. as needed for shortness of breath, #1 inhaler, no refills. 6. Azithromycin 500 mg, #3, no refills. CONDITION ON DISCHARGE: Stable and improved. DISPOSITION: The patient was discharged home. #[id number] [facility]
== END 2020-06-27 17:53 | disposition home or self-care (01) | DRG 177 ==
LOC: ER 01:35 → MS 02:58 → OBSVTOIN 02:58
PROVIDERS: ADMIT Nurse Practitioner Acute Care; ATTEND Nurse Practitioner Family
PROC: XW033E5 Introduction of Remdesivir Anti-infective into Peripheral Vein, Percutaneous Approach, New Technology Group 5 (ICD-10-PCS; principal; 2020-06-25)
DX: U07.1 COVID-19 (principal); J12.89 Other viral pneumonia; E83.42 Hypomagnesemia; E11.9 Type 2 diabetes mellitus without complications; I10 Essential (primary) hypertension; M10.9 Gout, unspecified; Z79.84 Long term (current) use of oral hypoglycemic drugs; Z79.899 Other long term (current) drug therapy